=== PATIENT | female | born 1990 | race Caucasian/White ===

== ENCOUNTER 2018-02-25 00:55 | Emergency (ER) | payer SELFPAY ==
[~2018-02-25] VITALS: Ht 170.2 cm; Wt 113.4 kg
[2018-02-25 01:04] VITALS: Ht 170.2 cm; Wt 113.4 kg
[2018-02-25 01:41] VITALS: BP 92/64
== END 2018-02-25 01:31 | disposition short-term general hospital (02) ==
LOC: ED 00:55
DX: I46.9 Cardiac arrest, cause unspecified (principal)
CPT/HCPCS: Q0092